=== PATIENT | female | born 1955 | race Caucasian/White ===

== ENCOUNTER 2016-12-30 08:27 | Inpatient (IN) | payer OTHER ==
[2016-12-30 09:04] VITALS: BMI 27.3
--- NOTE | 2016-12-30 12:33 | HP ---
CIWA Score - CIWA Score Nausea/Vomitin-No Nausea/No Vomiting Muscle Tremors: 5 Anxiety: 5 Agitation: 4-Moderately Restless Paroxysmal Sweats: 1-Minimal Palms Moist Orientation: 0-Oriented Tacttile Disturbances: 3-Moderate Itch/Numb/Burn Auditory Disturbances: 0-None Visual Disturbances: 0-None Headache: 0-None Present CIWA-Ar Total Score: 18 Admission ROS S - HPI Chief Complaint: DETOX TX FOR ALCOHOL DEPENDENCE/INTOXICATION/NAUSEA Allergies/Adverse Reactions: Allergies Allergy/AdvReac Type Severity Reaction Status Date / Time diphenhydramine HCl Allergy Severe Hives Verified 12/30/16 09:51 [From Benadryl] trazodone Allergy Severe Verified 12/30/16 13:12 History of Present Illness: 61 Y/O FEMALE WITH A HX OF ALCOHOL DEPENDENCE SEEKING DETOX TX. PT WAS AT [facility] ER LAST NIGHT AND D/C'D THIS MORNING DUE TO ALCOHOL INTOXICATION AND NAUSEA. REFERRED HERE FOR DETOX. Exam Limitations: No Limitations - Ebola screening Have you traveled outside of the country in the last 21 days: No Have you had contact with anyone from an Ebola affected area: No Have you been sick,other than usual withdrawal symptoms: No - Review of Systems Constitutional: Loss of Appetite, Changes in sleep EENT: reports: Blurred Vision (WEARS GLASSES), Nose Congestion Respiratory: reports: No Symptoms reported Cardiac: reports: Lightheadedness GI: reports: Diarrhea, Nausea, Poor Appetite, Vomiting : reports: Other (STATES HX OF ELEVATED PROTEIN,WBC AND RBC OF WHICH SHE DID A REPEAT LAB/UA WITH HER PMD AT [facility] IN [place] DENIES ANY OVERT SYMPTOMS.) Musculoskeletal: reports: Back Pain (HX BACK SX) Integumentary: reports: Change in Color (MULTIPLE SKIN DISCOLORATIONS), Lesions (HX SKIN CANCER), Other (HEALING ABRASIONS ON BOTH KNEES SUSTAINED ONE MONTH AGO.) Neuro: reports: Headache, Tremors (ANXIETY RELATED IF NO ALCOHOL.), Unsteady Gait, Dizziness Endocrine: reports: No Symptoms Reported Hematology: reports: No Symptoms Reported Psychiatric: reports: Orientated x3, Anxious, Depressed (ON MED) Other Systems: Reviewed and Negative Patient History - Patient Medical History Hx Anemia: No Hx Asthma: No Hx Chronic Obstructive Pulmonary Disease (COPD): No Hx Cardiac Disorders: No Hx Hypertension: No Hx Hypercholesterolemia: No HX Cerebrovascular Accident: No Hx Seizures: No Hx Diabetes: No Hx Gastrointestinal Disorders: No Hx Genitourinary Disorders: No Hx Sexually Transmitted Disorders: No (DENIES) Hx Renal Disease (ESRD): No Hx Human Immunodeficiency Virus (HIV): No (NEGATIVE HX) Hx Hepatitis C: No (DENIES) Hx Depression: Yes (ON MED) Hx Suicide Attempt: No (DENIES) Hx Schizophrenia: No - Patient Surgical History Past Surgical History: Yes Hx Neurologic Surgery: Yes (full fusion of Lower Lumbar Back (03/08/11) Hx Cataract Extraction: No Hx Cardiac Surgery: No Hx Lung Surgery: No Hx Breast Surgery: No Hx Breast Biopsy: Yes (LEFT BREAST LUMPECTOMY-05/2016--BENIGN) Hx Abdominal Surgery: Yes (umbilical hernia repair in 2013) Hx Appendectomy: No Hx Cholecystectomy: No Hx Genitourinary Surgery: No Hx Section: No Hx Orthopedic Surgery: No Hx Hysterectomy: No Other Surgical History: variety of skin cancers all over body (16 biopsy); concussion (last sat) Anesthesia Reaction: No - PPD History Previous Implant?: Yes Implanted On Prior [facility] Admission?: Yes Date: 06/13/12 Results: 0 mm PPD to be Administered?: Yes - Reproductive History Patient is a Female of Child Bearing Age (11 -55 yrs old): No (POST MENOPAUSAL ) LMP comment: DECEMBER 2012 Patient : No - Smoking Cessation Smoking history: Never smoked Have you smoked in the past 12 months: No Hx Chewing Tobacco Use: No Initiated information on smoking cessation: No - Substance & Tx. History Hx Alcohol Use: Yes (VODKA) Hx Substance Use: No (DENIES) Substance Use Type: Alcohol Hx Substance Use Treatment: Yes (LAST DETOX @[facility] [place] IN 2011) - Substances Abused Alcohol-vodka Route: Oral Frequency: Daily Amount used: 1 pt. Age of first use: 38 Date of Last Use: 12/29/16 Family Disease History - Family Disease History Family Disease History: CA: Father (PROSTATE CA;), Mother (BREAST CA), Other: Grandparent (ALCOHOLISM-), Sister (ALCOHOLISM) Admission Physical Exam BHS - Vital Signs Vital Signs: Vital Signs - 24 hr 12/30/16 08:59 Temperature 95.6 F L Pulse Rate 65 Respiratory 18 Rate Blood Pressure 133/90 - Physical General Appearance: Yes: Moderate Distress, Alcohol on Breath, Intoxicated, Irritable, Anxious HEENTM: Yes: EOMI, Normocephalic, [place], Pharynx Normal, Nasal Congestion Respiratory: Yes: Chest Non-Tender, Lungs Clear, Normal Breath Sounds, No Respiratory Distress Neck: Yes: Supple, Trachea in good position Breast: Yes: Breast Exam Deferred Cardiology: Yes: Regular Rhythm, Regular Rate, S1, S2 Abdominal: Yes: Normal Bowel Sounds, Non Tender, Soft Genitourinary: Yes: Other (N/C) Back: Yes: Within Normal Limits Musculoskeletal: Yes: full range of Motion, Gait Steady Extremities: Yes: Normal Range of Motion, Non-Tender Neurological: Yes: senior media director II-XII NML intact, Fully Oriented, Alert Integumentary: Yes: Dry, Warm, Other (DRY ABRASIONS AT STAGE OF HEALING ON BOTH KNEES.) Lymphatic: Yes: Within Normal Limits - Diagnostic (1) Alcohol dependence with uncomplicated withdrawal Current Visit: Yes Status: Acute (2) History of skin cancer Current Visit: Yes Status: Resolved (3) Fusion of lumbar spine Current Visit: Yes Status: Resolved Cleared for Admission [facility] - Detox or Rehab [facility] Level of Care: Medically Managed Detox Regimen/Protocol: Librium [facility] Breath Alcohol Content Breath Alcohol Content: 0.190 Urine Pregancy Test - Result Urine Test Results: Negative- NO Line Present Urine Drug Screen - Results Drug Screen Negative: No Urine Drug Screen Results: OPI-Opiates, BZO-Benzodiazepines
[2016-12-30] MEDS ORDERED: chlordiazePOXIDE HCL 25 MG CAPSULE PO PRN (13:07)
[2016-12-30] MEDS ORDERED: LOPERAMIDE HCL 2 MG CAPSULE PO PRN (13:07)
[2016-12-30] MEDS ORDERED: P-EPHED 60MG/TRIPROLIDI 2.5MG TABLET PO PRN (13:07)
[2016-12-30] MEDS ORDERED: MENTHOL/PHENOL 1 EACH UD MM PRN (13:07)
[2016-12-30] MEDS ORDERED: ACETAMINOPHEN 325 MG TABLET (FP) PO PRN (13:07)
[2016-12-30] MEDS ORDERED: MAGNESIUM CITRATE 300 ML BOTTLE PO PRN (13:07)
[2016-12-30] MEDS ORDERED: guaiFENesin/D-METHORPHAN HB 10 ML UNIT-DOSE CUPS PO PRN (13:07)
[2016-12-30] MEDS ORDERED: MAG HYDROX/AL HYDROX/SIMETH 30 ML UNIT-DOSE CUP PO PRN (13:07)
[2016-12-30] MEDS ORDERED: MAGNESIUM HYDROX 2400MG/30ML ORAL SUSPENSION 30 ML CUP PO PRN (13:07)
[2016-12-30] MEDS ORDERED: AMMONIUM LACTATE 12% LOTION 225 GM BOTTLE TP ONE (14:30)
[2016-12-30] MEDS ORDERED: chlordiazePOXIDE HCL 25 MG CAPSULE PO ONE (14:30)
[2016-12-30] MEDS ORDERED: ONDANSETRON *ODT* 4 MG TABLET SL PRN (15:14)
[2016-12-30] MEDS: chlordiazePOXIDE HCL 25 MG CAPSULE PO SCH ×2 (16:58→22:09)
[2016-12-30] MEDS: IBUPROFEN 400 MG TABLET (FP) PO PRN (17:01)
[2016-12-30 18:08] LABS: URINE APPEARANCE CLEAR; URINE BILIRUBIN NEGATIVE (NEGATIVE); URINE COLOR LTYELLOW; URINE GLUCOSE (UA) NEGATIVE (NEGATIVE); URINE KETONE NEGATIVE (NEGATIVE); URINE LEUK ESTERASE NEGATIVE (NEGATIVE); URINE NITRITE NEGATIVE (NEGATIVE); URINE PROTEIN NEGATIVE (NEGATIVE); URINE UROBILINOGEN NEGATIVE E.U./dl (0.2-1.0)
[2016-12-30 18:09] LABS: URINE BLOOD 2+ (NEGATIVE)
[2016-12-30 18:10] LABS: URINE MUCUS RARE; URINE RBC 23 /hpf (0-3); URINE WBC 1 /hpf (3-5)
[2016-12-30] MEDS ORDERED: THIAMINE HCL 100 MG TABLET (FP) PO SCH (22:00)
[2016-12-31] MEDS: chlordiazePOXIDE HCL 25 MG CAPSULE PO SCH ×2 (05:07→10:16)
[2016-12-31] MEDS ORDERED: PRENATAL VITAMINS W/ FOLIC ACID TABLET (FP) PO SCH (10:00)
--- NOTE | 2016-12-31 10:03 | EKG ---
Test Reason : Blood Pressure : / mmHG Vent. Rate : 072 BPM Atrial Rate : 072 BPM P-R Int : 154 ms QRS Dur : 088 ms QT Int : 430 ms P-R-T Axes : 025 012 026 degrees QTc Int : 470 ms NORMAL SINUS RHYTHM NO PREVIOUS ECGS AVAILABLE Confirmed by HERNÁN ROBERTS MD ([id number]) on 12/31/2016 10:03:40 AM Referred By: Confirmed By:HERNÁN ROBERTS MD
[2016-12-31 10:18] LABS: MCHC 34.1 g/dl (32.0-36.0); MEAN CELL VOLUME 108.4 fl (80-96); MEAN PLT VOLUME 7.1 fl (7.5-11.1); PLATELET COUNT 265 K/MM3 (134-434); RDW 14.4 % (11.6-15.6); WHITE BLOOD COUNT 4.5 K/mm3 (4.0-10.0)
[2016-12-31] MEDS: IBUPROFEN 400 MG TABLET (FP) PO PRN (10:19)
[2016-12-31 10:58] LABS: ALBUMIN 4.2 g/dl (3.4-5.0); ALK PHOS 148 U/L (45-117); ANION GAP 14 (8-16); BILIRUBIN,TOTAL 0.7 mg/dL (0.2-1.0); CALCIUM 8.5 mg/dL (8.5-10.1); CO2 26 mmol/L (21-32); CREATININE 0.6 mg/dL (0.55-1.02); GLUCOSE,RANDOM 73 mg/dL (74-106); SGOT/AST 119 U/L (15-37); SGPT/ALT 117 U/L (12-78); TOT PROT 7.7 g/dl (6.4-8.2)
--- NOTE | 2016-12-31 12:27 | PN ---
[facility] CIWA - CIWA Score Nausea/Vomitin-No Nausea/No Vomiting Muscle Tremors: 4-Moderate,w/Arms Extend Anxiety: 4-Mod. Anxious/Guarded Agitation: 3 Paroxysmal Sweats: 3 Orientation: 0-Oriented Tacttile Disturbances: 1-Very Mild Itch/Numbness Auditory Disturbances: 0-None Visual Disturbances: 0-None Headache: 0-None Present CIWA-Ar Total Score: 15 BHS Progress Note (SOAP) Subjective: Anxiety,tremors,sweating,interrupted sleep,restless Objective: 12/31/16 12:25 Vital Signs - 8 hr 12/31/16 12/31/16 06:12 10:00 Temperature 97.3 F L 97.7 F Pulse Rate 71 93 H Respiratory 18 18 Rate Blood Pressure 134/90 145/91 Laboratory Tests 12/30/16 12/31/16 12/31/16 15:59 06:10 06:10 WBC 4.5 RBC 3.89 Hgb 14.4 D Hct 42.1 MCV 108.4 H MCHC 34.1 RDW 14.4 D Plt Count 265 D MPV 7.1 L Macrocytosis 2+ Sodium 142 Potassium 4.1 Chloride 102 Carbon Dioxide 26 Anion Gap 14 BUN 9 Creatinine 0.6 Creat Clearance w eGFR > 60 Random Glucose 73 L D Calcium 8.5 Total Bilirubin 0.7 D AST 119 H D ALT 117 H D Alkaline Phosphatase 148 H D Total Protein 7.7 Albumin 4.2 Urine Color Ltyellow Urine Appearance Clear Urine pH 6.0 Ur Specific [place] 1.015 Urine Protein Negative Urine Glucose (UA) Negative Urine Ketones Negative Urine Blood 2+ H Urine Nitrite Negative Urine Bilirubin Negative Urine Urobilinogen Negative Ur Leukocyte Esterase Negative Urine RBC 23 Urine WBC 1 Ur Epithelial Cells Few Urine Mucus Rare labs noted Assessment: 12/31/16 12:26 Withdrawal sx. Plan: Continue detox
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
[2016-12-31] MEDS ORDERED: chlordiazePOXIDE HCL 25 MG CAPSULE PO SCH (17:00)
[2016-12-31 18:08] VITALS: BP 117/60; PULSE 80; TEMP 98.4
[2017-01-01] MEDS ORDERED: ESCITALOPRAM OXALATE 10 MG TABLET (FP) PO SCH (10:00)
--- NOTE | 2017-01-01 16:03 | DS ---
[facility] Detox Discharge Summary Admission Date: 12/30/16 Discharge Date: 12/31/16 - History Present History: Alcohol Dependence Pertinent Past History: Skin cancer Fusion of the spine - Physical Exam Results Vital Signs: Vital Signs Temperature 98.4 F 12/31/16 18:07 Pulse Rate 80 12/31/16 18:07 Respiratory Rate 18 12/31/16 18:07 Blood Pressure 117/60 12/31/16 18:07 O2 Sat by Pulse Oximetry (%) Pertinent Admission Physical Exam Findings: Withdrawal sx. Laboratory Last Values WBC 4.5 K/mm3 (4.0-10.0) 12/31/16 06:10 RBC 3.89 M/mm3 (3.60-5.2) 12/31/16 06:10 Hgb 14.4 GM/dL (10.7-15.3) D 12/31/16 06:10 Hct 42.1 % (32.4-45.2) 12/31/16 06:10 MCV 108.4 fl (80-96) H 12/31/16 06:10 MCHC 34.1 g/dl (32.0-36.0) 12/31/16 06:10 RDW 14.4 % (11.6-15.6) D 12/31/16 06:10 Plt Count 265 K/MM3 (134-434) D 12/31/16 06:10 MPV 7.1 fl (7.5-11.1) L 12/31/16 06:10 Macrocytosis 2+ 12/31/16 06:10 Sodium 142 mmol/L (136-145) 12/31/16 06:10 Potassium 4.1 mmol/L (3.5-5.1) 12/31/16 06:10 Chloride 102 mmol/L (98-107) 12/31/16 06:10 Carbon Dioxide 26 mmol/L (21-32) 12/31/16 06:10 Anion Gap 14 (8-16) 12/31/16 06:10 BUN 9 mg/dL (7-18) 12/31/16 06:10 Creatinine 0.6 mg/dL (0.55-1.02) 12/31/16 06:10 Creat Clearance w eGFR > 60 (>60) 12/31/16 06:10 Random Glucose 73 mg/dL (74-106) L D 12/31/16 06:10 Calcium 8.5 mg/dL (8.5-10.1) 12/31/16 06:10 Total Bilirubin 0.7 mg/dL (0.2-1.0) D 12/31/16 06:10 AST 119 U/L (15-37) H D 12/31/16 06:10 ALT 117 U/L (12-78) H D 12/31/16 06:10 Alkaline Phosphatase 148 U/L (45-117) H D 12/31/16 06:10 Total Protein 7.7 g/dl (6.4-8.2) 12/31/16 06:10 Albumin 4.2 g/dl (3.4-5.0) 12/31/16 06:10 Urine Color Ltyellow 12/30/16 15:59 Urine Appearance Clear 12/30/16 15:59 Urine pH 6.0 (5.0-8.0) 12/30/16 15:59 Ur Specific [place] 1.015 (1.005-1.025) 12/30/16 15:59 Urine Protein Negative (NEGATIVE) 12/30/16 15:59 Urine Glucose (UA) Negative (NEGATIVE) 12/30/16 15:59 Urine Ketones Negative (NEGATIVE) 12/30/16 15:59 Urine Blood 2+ (NEGATIVE) H 12/30/16 15:59 Urine Nitrite Negative (NEGATIVE) 12/30/16 15:59 Urine Bilirubin Negative (NEGATIVE) 12/30/16 15:59 Urine Urobilinogen Negative E.U./dl (0.2-1.0) 12/30/16 15:59 Ur Leukocyte Esterase Negative (NEGATIVE) 12/30/16 15:59 Urine RBC 23 /hpf (0-3) 12/30/16 15:59 Urine WBC 1 /hpf (3-5) 12/30/16 15:59 Ur Epithelial Cells Few /hpf (FEW) 12/30/16 15:59 Urine Mucus Rare 12/30/16 15:59 RPR Titer Nonreactive (NONREACTIVE) 12/31/16 06:10 labs noted - Treatment Patient has Accepted a Rehab Referral to: 12 step meetings - Medication Discharge Medications: Ambulatory Orders Acetaminophen W/ Codeine #3 [Tylenol # 3 -] 1 tab PO TID PRN 12/30/16 Escitalopram Oxalate [Lexapro -] 15 mg PO DAILY 12/30/16 Gabapentin [Neurontin -] 300 mg PO BID 12/30/16 Magnesium 200 mg PO DAILY 12/30/16 Escitalopram Oxalate [Lexapro -] 15 mg PO DAILY #30 tablet 12/31/16 - Diagnosis (1) Alcohol dependence with uncomplicated withdrawal Status: Acute (2) Depressive disorder Status: Chronic (3) Post traumatic stress disorder (PTSD) Status: Chronic (4) Fusion of lumbar spine Status: Resolved (5) History of skin cancer Status: Resolved - AMA Did Patient Leave Against Medical Advice: Yes
[2017-01-01] MEDS ORDERED: chlordiazePOXIDE 5 MG CAPSULE PO SCH (17:00)
[2017-01-02] MEDS ORDERED: chlordiazePOXIDE HCL 10 MG CAPSULE PO SCH (17:00)
== END 2016-12-31 05:45 | disposition left against medical advice (07) | DRG 770 ==
LOC: YASAS 08:27 → Y6N 13:37
PROVIDERS: ADMIT Internal Medicine; ATTEND Internal Medicine
PROC: HZ2ZZZZ Detoxification Services for Substance Abuse Treatment (ICD-10-PCS; principal; 2016-12-30)
DX: F10.230 Alcohol dependence with withdrawal, uncomplicated (principal); F43.10 Post-traumatic stress disorder, unspecified; F32.9 Major depressive disorder, single episode, unspecified; Z85.828 Personal history of other malignant neoplasm of skin; Z98.1 Arthrodesis status
CPT/HCPCS: 36415; 80053; 81003; 81015; 85027; 86593; 93005; 93010

== ENCOUNTER 2017-04-06 12:53 | Inpatient (IN) | payer OTHER ==
[2017-04-06 15:55] VITALS: BMI 34.1
--- NOTE | 2017-04-06 18:33 | HP ---
CIWA Score - CIWA Score Nausea/Vomitin-Mild Nausea/No Vomiting Muscle Tremors: 4-Moderate,w/Arms Extend Anxiety: 4-Mod. Anxious/Guarded Agitation: 4-Moderately Restless Paroxysmal Sweats: 1-Minimal Palms Moist Orientation: 1-Uncertain about Date Tacttile Disturbances: 0-None Auditory Disturbances: 0-None Visual Disturbances: 0-None Headache: 2-Mild CIWA-Ar Total Score: 17 Admission ROS S - HPI Chief Complaint: WITHDRAWAL SX Allergies/Adverse Reactions: Allergies Allergy/AdvReac Type Severity Reaction Status Date / Time diphenhydramine HCl Allergy Severe Hives Verified 12/30/16 09:51 [From Benadryl] trazodone Allergy Severe Verified 12/30/16 13:12 History of Present Illness: 62 YEARS OLD FEMALE WITH LONG HISTORY OF ALCOHOL DEPENDENCE HISTORY OF LEFT BREAST CA SKIN CA, AND DEPRESSION IS ADMITTED TO DETOX Exam Limitations: No Limitations - Ebola screening Have you traveled outside of the country in the last 21 days: No Have you had contact with anyone from an Ebola affected area: No Have you been sick,other than usual withdrawal symptoms: No Do you have a fever: No - Review of Systems Constitutional: Changes in sleep, Weight Stable EENT: reports: No Symptoms Reported Respiratory: reports: No Symptoms reported Cardiac: reports: No Symptoms Reported GI: reports: Nausea, Poor Fluid Intake, Abdominal cramping : reports: No Symptoms Reported Musculoskeletal: reports: Back Pain (FUSE 2010) Integumentary: reports: Change in Color (HYPERPIGMENTATION MULTIPLE FACIAL + UPPER CHEST + ARMS + LEGS) Neuro: reports: Tremors Endocrine: reports: No Symptoms Reported Hematology: reports: No Symptoms Reported Psychiatric: reports: Judgement Intact, Anxious, Depressed Other Systems: Reviewed and Negative Patient History - Patient Medical History Hx Anemia: No Hx Asthma: No Hx Chronic Obstructive Pulmonary Disease (COPD): No Hx Cancer: No Hx Cardiac Disorders: No Hx Congestive Heart Failure: No Hx Hypertension: No Hx Hypercholesterolemia: No Hx Pacemaker: No HX Cerebrovascular Accident: No Hx Seizures: No Hx Dementia: No Hx Diabetes: No Hx Gastrointestinal Disorders: No Hx Liver Disease: No Hx Genitourinary Disorders: No Hx Sexually Transmitted Disorders: No (DENIES) Hx Renal Disease (ESRD): No Hx Thyroid Disease: No Hx Human Immunodeficiency Virus (HIV): No (NEGATIVE HX) Hx Hepatitis C: No (DENIES) Hx Depression: Yes (ON MED) Hx Suicide Attempt: No (DENIES) Hx Bipolar Disorder: No Hx Schizophrenia: No - Patient Surgical History Past Surgical History: Yes Hx Neurologic Surgery: Yes (full fusion of Lower Lumbar Back (03/08/11) Hx Cataract Extraction: No Hx Cardiac Surgery: No Hx Lung Surgery: No Hx Breast Surgery: No Hx Breast Biopsy: Yes (LEFT BREAST LUMPECTOMY-05/2016--BENIGN) Hx Abdominal Surgery: Yes (umbilical hernia repair in 2013) Hx Appendectomy: No Hx Cholecystectomy: No Hx Genitourinary Surgery: No Hx Section: No Hx Orthopedic Surgery: No Hx Hysterectomy: No Other Surgical History: variety of skin cancers all over body (16 biopsy); concussion (last sat) Anesthesia Reaction: No - PPD History Previous Implant?: Yes Documented Results: Negative w/o proof Implanted On Prior R Admission?: Yes Date: 06/13/12 Results: 0 mm PPD to be Administered?: Yes - Reproductive History Patient is a Female of Child Bearing Age (11 -55 yrs old): No Last Menstrual Period: 06/07/12 Patient : No - Smoking Cessation Smoking history: Never smoked Have you smoked in the past 12 months: No Hx Chewing Tobacco Use: No Initiated information on smoking cessation: No - Substance & Tx. History Hx Alcohol Use: Yes Hx Substance Use: No Substance Use Type: Alcohol Hx Substance Use Treatment: No - Substances Abused Alcohol Route: Oral Frequency: Daily Amount used: PINT ESPER[place]ZA Age of first use: 32 Date of Last Use: 04/06/17 Family Disease History - Family Disease History Family Disease History: CA: Father (PROSTATE CA;), Mother (BREAST CA), Other: Grandparent (ALCOHOLISM-), Sister (ALCOHOLISM) Admission Physical Exam BHS - Vital Signs Vital Signs: Vital Signs - 24 hr 04/06/17 15:54 Temperature 97 F L Pulse Rate 90 Respiratory 20 Rate Blood Pressure 161/86 - Physical General Appearance: Yes: Appropriately Dressed, Moderate Distress, Alcohol on Breath, Tremorous, Irritable, Sweating, Anxious HEENTM: Yes: Hearing grossly Normal, Normal ENT Inspection, Normocephalic, Normal Voice Respiratory: Yes: Chest Non-Tender, Lungs Clear, Normal Breath Sounds, No Respiratory Distress, No Accessory Muscle Use Neck: Yes: Supple, Trachea in good position Breast: Yes: Breasts Symetrical Cardiology: Yes: Regular Rhythm, S1, S2, Tachycardia Abdominal: Yes: Normal Bowel Sounds, Non Tender, Soft Genitourinary: Yes: Within Normal Limits Back: Yes: Normal Inspection Musculoskeletal: Yes: full range of Motion, Gait Steady Extremities: Yes: Normal Inspection, Normal Range of Motion, Non-Tender, Tremors Neurological: Yes: Fully Oriented, Alert, Motor Strength 5/5, Normal Response, Depressed Affect Integumentary: Yes: Warm Lymphatic: Yes: Within Normal Limits - Diagnostic (1) Alcohol dependence with uncomplicated withdrawal Current Visit: Yes Status: Acute (2) Depressive disorder Current Visit: Yes Status: Suspected (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
[2017-04-06] MEDS ORDERED: MAG HYDROX/AL HYDROX/SIMETH 30 ML UNIT-DOSE CUP PO PRN (18:40)
[2017-04-06] MEDS ORDERED: hydrOXYzine PAMOATE 50 MG CAPSULE (FP) PO PRN (18:40)
[2017-04-06] MEDS ORDERED: MENTHOL/PHENOL 1 EACH UD MM PRN (18:40)
[2017-04-06] MEDS ORDERED: chlordiazePOXIDE HCL 25 MG CAPSULE PO PRN (18:40)
[2017-04-06] MEDS ORDERED: MAGNESIUM HYDROX 2400MG/30ML ORAL SUSPENSION 30 ML CUP PO PRN (18:40)
[2017-04-06] MEDS ORDERED: chlordiazePOXIDE HCL 25 MG CAPSULE PO ONE (18:40)
[2017-04-06] MEDS ORDERED: P-EPHED 60MG/TRIPROLIDI 2.5MG TABLET PO PRN (18:40)
[2017-04-06] MEDS ORDERED: guaiFENesin/D-METHORPHAN HB 10 ML UNIT-DOSE CUPS PO PRN (18:40)
[2017-04-06] MEDS ORDERED: LOPERAMIDE HCL 2 MG CAPSULE PO PRN (18:40)
[2017-04-06] MEDS ORDERED: IBUPROFEN 400 MG TABLET (FP) PO PRN (18:40)
[2017-04-06] MEDS ORDERED: MAGNESIUM CITRATE 300 ML BOTTLE PO PRN (18:40)
[2017-04-06] MEDS ORDERED: ACETAMINOPHEN 325 MG TABLET (FP) PO PRN (18:40)
[2017-04-06] MEDS ORDERED: cloNIDine HCL 0.1 MG TABLET PO PRN (18:53)
[2017-04-06] MEDS: CYCLOBENZAPRINE HCL 10 MG TABLET (FP) PO PRN (22:39)
[2017-04-06] MEDS: chlordiazePOXIDE HCL 25 MG CAPSULE PO SCH (22:41)
[2017-04-06] MEDS: THIAMINE HCL 100 MG TABLET (FP) PO SCH (22:41)
[2017-04-06] MEDS: AMMONIUM LACTATE 12% LOTION 225 GM BOTTLE TP SCH (22:42)
[2017-04-06 23:41] LABS: URINE APPEARANCE SLCLOUDY; URINE BILIRUBIN NEGATIVE (NEGATIVE); URINE BLOOD 1+ (NEGATIVE); URINE COLOR YELLOW; URINE GLUCOSE (UA) NEGATIVE (NEGATIVE); URINE KETONE NEGATIVE (NEGATIVE); URINE NITRITE NEGATIVE (NEGATIVE); URINE PROTEIN NEGATIVE (NEGATIVE); URINE UROBILINOGEN NEGATIVE mg/dL (0.2-1.0)
[2017-04-06 23:55] LABS: URINE LEUK ESTERASE 2+ (NEGATIVE)
[2017-04-07 00:05] LABS: CALCIUM OXALATE CRYSTALS RARE /hpf (NONE SEEN); URINE BACTERIA FEW /hpf (NONE SEEN); URINE MUCUS RARE; URINE RBC 3 /hpf (0-3); URINE WBC 12 /hpf (3-5)
[2017-04-07] MEDS: chlordiazePOXIDE HCL 25 MG CAPSULE PO SCH ×4 (06:05→22:49)
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
--- NOTE | 2017-04-07 09:48 | CONSULT ---
[facility] Psychiatric Consult - Data Date of interview: 04/07/17 Admission source: [facility] Psychiatric Findings - Problem List ([place] 1, 2,3) (1) Alcohol dependence with uncomplicated withdrawal Status: Chronic (2) History of lumbar fusion Status: Resolved (3) Scirrhous carcinoma of left breast Status: Resolved Comment: 2013 (4) Skin cancer (melanoma) Status: Resolved (5) Post traumatic stress disorder (PTSD) Status: Chronic Comment: Self-report. - Initial Treatment Plan Initial Treatment Plan: Will monitor progress.
[2017-04-07 10:23] LABS: MCHC 34.7 g/dl (32.0-36.0); MEAN CELL VOLUME 106.6 fl (80-96); MEAN PLT VOLUME 7.3 fl (7.5-11.1); PLATELET COUNT 187 K/MM3 (134-434); RDW 13.3 % (11.6-15.6); WHITE BLOOD COUNT 4.1 K/mm3 (4.0-10.0)
--- NOTE | 2017-04-07 10:35 | PN ---
S CIWA - CIWA Score Nausea/Vomitin Muscle Tremors: 4-Moderate,w/Arms Extend Anxiety: 4-Mod. Anxious/Guarded Agitation: 4-Moderately Restless Paroxysmal Sweats: 3 Orientation: 0-Oriented Tacttile Disturbances: 1-Very Mild Itch/Numbness Auditory Disturbances: 0-None Visual Disturbances: 0-None Headache: 1-Very Mild CIWA-Ar Total Score: 20 BHS Progress Note (SOAP) Subjective: nausea, sweats, interrupted sleep, anxiety, tremors Objective: 04/07/17 10:34 Vital Signs - 8 hr 04/07/17 04/07/17 04/07/17 03:30 07:19 10:10 Temperature 97.7 F 97.5 F L Pulse Rate 87 84 Respiratory 18 18 18 Rate Blood Pressure 138/95 139/97 Laboratory Tests 04/06/17 15:44 Urine Color Yellow Urine Appearance Slcloudy Urine pH 6.0 Ur Specific [place] 1.015 Urine Protein Negative Urine Glucose (UA) Negative Urine Ketones Negative Urine Blood 1+ H Urine Nitrite Negative Urine Bilirubin Negative Urine Urobilinogen Negative Urine RBC 3 Urine WBC 12 Ur Epithelial Cells Few Calcium Oxalate Crystal Rare Urine Bacteria Few Urine Mucus Rare labs still pending Assessment: 04/07/17 10:34 withdrawal sx Plan: cont detox, control bp, fluids, encourage ambulation
[2017-04-07 11:01] LABS: SGPT/ALT 95 U/L (12-78)
[2017-04-07 11:11] LABS: ALBUMIN 3.1 g/dl (3.4-5.0); ALK PHOS 133 U/L (45-117); ANION GAP 10 (8-16); BILIRUBIN,TOTAL 0.7 mg/dL (0.2-1.0); CO2 27 mmol/L (21-32); CREATININE 0.6 mg/dL (0.55-1.02); GLUCOSE,RANDOM 95 mg/dL (74-106); SGOT/AST 45 U/L (15-37); TOT PROT 6.1 g/dl (6.4-8.2)
[2017-04-07] MEDS: PRENATAL VITAMINS W/ FOLIC ACID TABLET (FP) PO SCH (11:11)
[2017-04-07] MEDS: AMMONIUM LACTATE 12% LOTION 225 GM BOTTLE TP SCH ×2 (11:11→22:49)
[2017-04-07] MEDS: ESCITALOPRAM OXALATE 10 MG TABLET (FP) PO SCH (11:13)
[2017-04-07] MEDS: MAGNESIUM OXIDE 400 MG TABLET (FP) PO SCH (11:50)
[2017-04-07] MEDS: NALTREXONE HCL 50 MG TABLET PO SCH (11:50)
[2017-04-07] MEDS ORDERED: FLU VACCINE QUAD 60 MCG/0.5 ML (MDV 17-18) IM ONE (12:00)
[2017-04-07] MEDS: cloNIDine HCL 0.1 MG TABLET PO SCH (22:49)
[2017-04-07] MEDS: CYCLOBENZAPRINE HCL 10 MG TABLET (FP) PO PRN (22:49)
[2017-04-07] MEDS: THIAMINE HCL 100 MG TABLET (FP) PO SCH (22:49)
[2017-04-08] MEDS: chlordiazePOXIDE HCL 25 MG CAPSULE PO SCH ×3 (06:10→17:20)
--- NOTE | 2017-04-08 09:51 | EKG ---
Test Reason : Blood Pressure : / mmHG Vent. Rate : 083 BPM Atrial Rate : 083 BPM P-R Int : 152 ms QRS Dur : 086 ms QT Int : 404 ms P-R-T Axes : 015 009 023 degrees QTc Int : 474 ms NORMAL SINUS RHYTHM NORMAL ECG WHEN COMPARED WITH ECG OF 30-DEC-2016 14:07, NO SIGNIFICANT CHANGE WAS FOUND Confirmed by MD LISA, PAOLO ([id number]) on 04/08/2017 9:50:50 AM Referred By: Confirmed By:PAOLO GONZALEZ MD
[2017-04-08] MEDS: MAGNESIUM OXIDE 400 MG TABLET (FP) PO SCH (10:47)
[2017-04-08] MEDS: cloNIDine HCL 0.1 MG TABLET PO SCH ×2 (10:47→22:33)
[2017-04-08] MEDS: PRENATAL VITAMINS W/ FOLIC ACID TABLET (FP) PO SCH (10:47)
[2017-04-08] MEDS: NALTREXONE HCL 50 MG TABLET PO SCH (10:47)
[2017-04-08] MEDS: ESCITALOPRAM OXALATE 10 MG TABLET (FP) PO SCH (10:48)
[2017-04-08] MEDS: AMMONIUM LACTATE 12% LOTION 225 GM BOTTLE TP SCH ×2 (11:24→22:35)
--- NOTE | 2017-04-08 15:35 | PN ---
S CIWA - CIWA Score Nausea/Vomitin Muscle Tremors: 3 Anxiety: 3 Agitation: 2 Paroxysmal Sweats: 1-Minimal Palms Moist Orientation: 0-Oriented Tacttile Disturbances: 1-Very Mild Itch/Numbness Auditory Disturbances: 1-Very Mild Visual Disturbances: 1-Very Mild Sensitivity Headache: 2-Mild CIWA-Ar Total Score: 17 BHS Progress Note (SOAP) Subjective: alert,irritable,anxious,interrupted sleep,pain in the body Objective: 04/08/17 15:31 Vital Signs Temperature 96.3 F L 04/08/17 15:07 Pulse Rate 83 04/08/17 15:07 Respiratory Rate 18 04/08/17 15:07 Blood Pressure 141/85 04/08/17 15:07 O2 Sat by Pulse Oximetry (%) Laboratory Last Values WBC 4.1 K/mm3 (4.0-10.0) 04/07/17 07:40 RBC 3.42 M/mm3 (3.60-5.2) L 04/07/17 07:40 Hgb 12.6 GM/dL (10.7-15.3) D 04/07/17 07:40 Hct 36.5 % (32.4-45.2) 04/07/17 07:40 MCV 106.6 fl (80-96) H 04/07/17 07:40 MCH 37.0 pg (25.7-33.7) H 04/07/17 07:40 MCHC 34.7 g/dl (32.0-36.0) 04/07/17 07:40 RDW 13.3 % (11.6-15.6) 04/07/17 07:40 Plt Count 187 K/MM3 (134-434) D 04/07/17 07:40 MPV 7.3 fl (7.5-11.1) L 04/07/17 07:40 Sodium 143 mmol/L (136-145) 04/07/17 07:40 Potassium 3.4 mmol/L (3.5-5.1) L 04/07/17 07:40 Chloride 106 mmol/L (98-107) 04/07/17 07:40 Carbon Dioxide 27 mmol/L (21-32) 04/07/17 07:40 Anion Gap 10 (8-16) 04/07/17 07:40 BUN 7 mg/dL (7-18) D 04/07/17 07:40 Creatinine 0.6 mg/dL (0.55-1.02) 04/07/17 07:40 Creat Clearance w eGFR > 60 (>60) 04/07/17 07:40 Random Glucose 95 mg/dL (74-106) D 04/07/17 07:40 Calcium 8.0 mg/dL (8.5-10.1) L 04/07/17 07:40 Total Bilirubin 0.7 mg/dL (0.2-1.0) 04/07/17 07:40 AST 45 U/L (15-37) H D 04/07/17 07:40 ALT 95 U/L (12-78) H 04/07/17 07:40 Alkaline Phosphatase 133 U/L (45-117) H 04/07/17 07:40 Total Protein 6.1 g/dl (6.4-8.2) L D 04/07/17 07:40 Albumin 3.1 g/dl (3.4-5.0) L D 04/07/17 07:40 Urine Color Yellow 04/06/17 15:44 Urine Appearance Slcloudy 04/06/17 15:44 Urine pH 6.0 (5.0-8.0) 04/06/17 15:44 Ur Specific [place] 1.015 (1.005-1.025) 04/06/17 15:44 Urine Protein Negative (NEGATIVE) 04/06/17 15:44 Urine Glucose (UA) Negative (NEGATIVE) 04/06/17 15:44 Urine Ketones Negative (NEGATIVE) 04/06/17 15:44 Urine Blood 1+ (NEGATIVE) H 04/06/17 15:44 Urine Nitrite Negative (NEGATIVE) 04/06/17 15:44 Urine Bilirubin Negative (NEGATIVE) 04/06/17 15:44 Urine Urobilinogen Negative mg/dL (0.2-1.0) 04/06/17 15:44 Urine RBC 3 /hpf (0-3) 04/06/17 15:44 Urine WBC 12 /hpf (3-5) 04/06/17 15:44 Ur Epithelial Cells Few /hpf (FEW) 04/06/17 15:44 Calcium Oxalate Crystal Rare /hpf (NONE SEEN) 04/06/17 15:44 Urine Bacteria Few /hpf (NONE SEEN) 04/06/17 15:44 Urine Mucus Rare 04/06/17 15:44 RPR Titer Nonreactive (NONREACTIVE) 04/07/17 07:40 04/08/17 15:34 Assessment: 04/08/17 15:34 withdrawal symptom Plan: continue detox,kdur 20 meq po daily k is 3.4
[2017-04-08] MEDS: POTASSIUM CHLORIDE TABS 20 MEQ TABLET.ER (FP) PO SCH (17:20)
[2017-04-08] MEDS: CYCLOBENZAPRINE HCL 10 MG TABLET (FP) PO PRN ×2 (17:26→22:33)
[2017-04-08] MEDS: chlordiazePOXIDE 5 MG CAPSULE PO SCH (22:33)
[2017-04-08] MEDS: THIAMINE HCL 100 MG TABLET (FP) PO SCH (23:30)
[2017-04-09] MEDS: chlordiazePOXIDE 5 MG CAPSULE PO SCH ×3 (06:19→17:38)
[2017-04-09] MEDS: MAGNESIUM OXIDE 400 MG TABLET (FP) PO SCH (10:37)
[2017-04-09] MEDS: ESCITALOPRAM OXALATE 10 MG TABLET (FP) PO SCH (10:37)
[2017-04-09] MEDS: cloNIDine HCL 0.1 MG TABLET PO SCH ×2 (10:37→22:24)
[2017-04-09] MEDS: PRENATAL VITAMINS W/ FOLIC ACID TABLET (FP) PO SCH (10:37)
[2017-04-09] MEDS: NALTREXONE HCL 50 MG TABLET PO SCH (10:37)
[2017-04-09] MEDS: POTASSIUM CHLORIDE TABS 20 MEQ TABLET.ER (FP) PO SCH (10:38)
[2017-04-09] MEDS: AMMONIUM LACTATE 12% LOTION 225 GM BOTTLE TP SCH ×2 (10:41→22:24)
--- NOTE | 2017-04-09 11:07 | PN ---
S Progress Note (SOAP) Subjective: ALERT,IRRITABLE,ANXIOUS,INTERRUPTED SLEEP Objective: 04/09/17 11:06 Vital Signs Temperature 98.1 F 04/09/17 10:08 Pulse Rate 78 04/09/17 10:08 Respiratory Rate 16 04/09/17 10:08 Blood Pressure 129/83 04/09/17 10:08 O2 Sat by Pulse Oximetry (%) Assessment: 04/09/17 11:06 WITHDRAWAL SYMPTOM Plan: CONTINUE DETOX,DISCHARGE IN AM
[2017-04-09] MEDS: CYCLOBENZAPRINE HCL 10 MG TABLET (FP) PO PRN (22:24)
[2017-04-09] MEDS: THIAMINE HCL 100 MG TABLET (FP) PO SCH (22:25)
[2017-04-09] MEDS: chlordiazePOXIDE HCL 10 MG CAPSULE PO SCH (22:25)
[2017-04-10] MEDS: chlordiazePOXIDE HCL 10 MG CAPSULE PO SCH (05:54)
[2017-04-10 06:29] VITALS: BP 147/80; PULSE 76; TEMP 97.7
--- NOTE | 2017-04-10 08:08 | DS ---
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 HYPOKALEMIA - Physical Exam Results Vital Signs: Vital Signs Temperature 97.7 F 04/10/17 06:28 Pulse Rate 76 04/10/17 06:28 Respiratory Rate 20 04/10/17 06:28 Blood Pressure 147/80 04/10/17 06:28 O2 Sat by Pulse Oximetry (%) Pertinent Admission Physical Exam Findings: WITHDRAWAL SYMPTOM - Treatment Hospital Course: Detox Protocol Followed, Detoxed Safely, Responded well, Discharged Condition Good - Medication Discharge Medications: Ambulatory Orders Escitalopram Oxalate [Lexapro -] 10 mg PO DAILY 12/30/16 Gabapentin [Neurontin -] 300 mg PO BID 12/30/16 Magnesium 200 mg PO DAILY 12/30/16 Potassium Chloride [K-Dur -] 20 meq PO DAILY 04/06/17 Escitalopram Oxalate [Lexapro -] 10 mg PO DAILY #30 tablet 04/07/17 Naltrexone HCl [Revia -] 50 mg PO DAILY #30 tablet 04/07/17 - AMA Did Patient Leave Against Medical Advice: No
== END 2017-04-10 08:00 | disposition home or self-care (01) | DRG 775 ==
LOC: YASAS 12:53 → Y6N 19:06
PROVIDERS: ADMIT Internal Medicine; ATTEND Internal Medicine
PROC: HZ2ZZZZ Detoxification Services for Substance Abuse Treatment (ICD-10-PCS; principal; 2017-04-06)
DX: F10.230 Alcohol dependence with withdrawal, uncomplicated (principal); F19.24 Other psychoactive substance dependence with psychoactive substance-induced mood disorder; F43.10 Post-traumatic stress disorder, unspecified; F32.9 Major depressive disorder, single episode, unspecified; E87.6 Hypokalemia; R00.0 Tachycardia, unspecified; Z98.1 Arthrodesis status; Z85.820 Personal history of malignant melanoma of skin; Z85.3 Personal history of malignant neoplasm of breast; Z88.8 Allergy status to other drugs, medicaments and biological substances
CPT/HCPCS: 36415; 80053; 81003; 81015; 85027; 86593; 90688; 93005; 93010; G0008